=== PATIENT | female | born 1975 | race Caucasian/White ===

== ENCOUNTER → 2021-07-26 | Outpatient (CLI) | payer OTHER ==
--- NOTE | 2021-07-26 12:34 | CARD ---
MR#: [id number] Date of Study: 07/26/2021 Ordering Physician: FLAKITO GONSALES, Referring Physician: FLAKITO GONSALES, Tech: Marti Michaeldaniella, [facility] APPROVED REPORT EXAM: Two-dimensional and M-mode echocardiogram with Doppler and color Doppler. Other Information Quality : AverageHR: 81bpm INDICATION Hypertension/HCVD 2D DIMENSIONS Left Atrium(2D)3.3 (1.6-4.0cm)IVSd0.8 (0.7-1.1cm) Aortic Root(2D)3.5 (2.0-3.7cm)LVDd5.4 (3.9-5.9cm) LVOT Diameter2.1 (1.8-2.4cm)PWd0.9 (0.7-1.1cm) LVDs3.6 (2.5-4.0cm)FS (%) 33.2 % SV87.3 mlLVEF(%)61.2 (>50%) Aortic Valve AoV Peak Kevin.162.6cm/sAoV VTI35.3cm AO Peak GR.10.6mmHgLVOT Peak Kevin.133.7cm/s LVOT VTI 25.06cmAO Mean GR.6mmHg MENDY (VMAX)2.07ks7PES (VTI)2.47cm2 Mitral Valve MV E Kznxnrvf45.1cm/sMV DECEL [id number] MV A Ueoxyunl61.5cm/sMV E Mean Gr.2mmHg MV YNW61aoH/A Ratio1.6 MVA (PHT)3.42cm2 TDI E/Lateral E'5.0E/Medial E'6.4 Pulmonary Valve PV Peak Seliqceh134.4cm/sPV Peak Grad.4mmHg Tricuspid Valve TR P. Vtcyatne700zg/sRAP MEIGEVLH0tiQa TR Peak Gr.06pjEoPFMF11llEe Pulmonary Vein S1 Vstmemuw92.8cm/sD2 Txrsqobq48.5cm/s PVa [id number] LEFT VENTRICLE The left ventricle is normal size. There is normal left ventricular wall thickness. The left ventricu lar systolic function is normal. The Ejection Fraction is 55-60%. There is normal LV segmental wall m otion. The left ventricular diastolic function and filling is normal for age. RIGHT VENTRICLE The right ventricle is normal size. There is normal right ventricular wall thickness. The right ventr icular systolic function is normal. ATRIA The left atrium size is normal. The right atrium size is normal. The interatrial septum is intact wit h no evidence for an atrial septal defect or patent foramen ovale as noted on 2-D or Doppler imaging. AORTIC VALVE The aortic valve is normal in structure and function. Doppler and Color Flow revealed no significant aortic regurgitation. There is no significant aortic valvular stenosis. Calculated aortic valve area is 2.69 cm2 with maximum pressure gradient of 12 mmHg and mean pressure gradient of 6 mmHg. MITRAL VALVE The mitral valve is normal in structure and function. There is no evidence of mitral valve prolapse. There is no mitral valve stenosis. Doppler and Color-flow revealed trace mitral regurgitation. TRICUSPID VALVE The tricuspid valve is normal in structure and function. Doppler and Color Flow revealed trace tricus pid regurgitation with an estimated PAP of 26 mmHg. There is no tricuspid valve stenosis. PULMONIC VALVE The pulmonic valve is not well visualized. Doppler and Color Flow revealed no pulmonic valvular regur gitation. GREAT VESSELS The aortic root is normal in size. The IVC is normal in size and collapses >50% with inspiration. PERICARDIAL EFFUSION There is no evidence of significant pericardial effusion. Critical Notification Critical Value: No <Conclusion> The left ventricular systolic function is normal. The Ejection Fraction is 55-60%. There is normal LV segmental wall motion. Trace mitral regurgitation. Trace tricuspid regurgitation with an estimated PAP of 26 mmHg. There is no evidence of significant pericardial effusion. Signed by : Salbador Bryant, Electronically Approved : 07/26/2021 12:34:47
== END ==
LOC: ECHO 10:09
PROVIDERS: ATTEND Physician Assistant Medical
DX: I10 Essential (primary) hypertension (principal)
CPT/HCPCS: 93306